=== PATIENT | male | born 1940 | race Caucasian/White ===

== ENCOUNTER 2024-06-27 05:54 | Day surgery (SDC) | payer OTHER, MEDICARE ==
[~2024-06-27] VITALS: Ht 185.4 cm; Wt 93.4 kg
[2024-06-27 06:59] VITALS: O2SAT 98
[2024-06-27] MEDS ORDERED: CEFAZOLIN 2 GM IVPB PREMIX 50 ML IV ONE (07:00)
[2024-06-27] MEDS ORDERED: BUPIVACAINE /PF 0.25% 10 ML VIAL INJ ONE (07:35)
[2024-06-27] MEDS ORDERED: LR 1,000 ML IV.SOLN IV ONE (07:35)
[2024-06-27] MEDS ORDERED: SUCCINYLCHOLINE CHLORIDE 20 MG/ML(QUELICIN) ONE (07:35)
[2024-06-27] MEDS ORDERED: METOCLOPRAMIDE HCL 10 MG/2 ML VIAL ONE (07:35)
[2024-06-27] MEDS ORDERED: ROCURONIUM BROMIDE 10 MG/ML (ZEMURON) ONE (07:35)
[2024-06-27] MEDS ORDERED: fentaNYL CITRATE/PF 100 MCG/2 ML AMP ONE (07:35)
[2024-06-27] MEDS ORDERED: SEVOFLURANE 15 MIN GAS INH ONE (07:35)
[2024-06-27] MEDS ORDERED: ONDANSETRON HCL 4 MG/2 ML VIAL ONE (07:35)
[2024-06-27] MEDS ORDERED: NEOSTIGMINE METHYLSULFATE 1 MG/ML, 10 ML VIAL ONE (07:35)
[2024-06-27] MEDS ORDERED: PROPOFOL 200MG/ 20ML VIAL (DIPRIVAN) IV ONE (07:35)
[2024-06-27] MEDS ORDERED: GLYCOPYRROLATE 0.2 MG/ML VIAL ONE (07:35)
[2024-06-27] MEDS ORDERED: NS IRRIG SOLN 1000 ML IR ONE (07:35)
[2024-06-27] MEDS ORDERED: ACETAMINOPHEN I.V. 1000 MG 100 ML IV ONE (07:37)
[2024-06-27] MEDS ORDERED: LR 1,000 ML IV SCH (08:30)
[2024-06-27] MEDS ORDERED: ONDANSETRON HCL 4 MG/2 ML VIAL IVP PRN (08:30)
[2024-06-27] MEDS ORDERED: HYDROmorphone 2 MG/ML VIAL IVP PRN (08:30)
[2024-06-27] MEDS ORDERED: HYDROmorphone 1 MG/ML INJ. CARTRIDGE IVP PRN (08:30)
[2024-06-27] MEDS ORDERED: D5/0.45 NS 1,000 ML IV SCH (09:15)
[2024-06-27] MEDS ORDERED: HYDROcodone/ACETAMIN 5-325 MG TAB (NORCO/ VICODIN) PO PRN ×2 (14:30)
[2024-06-27 18:06] VITALS: BP_SYST 144; PULSE 65; RESP 19
== END 2024-06-27 15:59 | disposition home or self-care (01) ==
LOC: SDS 05:54
PROVIDERS: ATTEND Colon & Rectal Surgery
DX: K40.30 Unilateral inguinal hernia, with obstruction, without gangrene, not specified as recurrent (principal); D17.6 Benign lipomatous neoplasm of spermatic cord; I10 Essential (primary) hypertension; K21.9 Gastro-esophageal reflux disease without esophagitis; E78.2 Mixed hyperlipidemia; M79.10 Myalgia, unspecified site; M19.90 Unspecified osteoarthritis, unspecified site; M10.9 Gout, unspecified; Z95.0 Presence of cardiac pacemaker; Z97.4 Presence of external hearing-aid; Z86.79 Personal history of other diseases of the circulatory system; Z86.39 Personal history of other endocrine, nutritional and metabolic disease; Z98.52 Vasectomy status; Z90.49 Acquired absence of other specified parts of digestive tract; Z98.890 Other specified postprocedural states; Z82.49 Family history of ischemic heart disease and other diseases of the circulatory system; Z80.0 Family history of malignant neoplasm of digestive organs; Z82.0 Family history of epilepsy and other diseases of the nervous system; Z79.899 Other long term (current) drug therapy
CPT/HCPCS: 87081; 49507; C1781; J3490 ×2; J0690; J2765; J2405; J2704; J0330; J3010; J7120; J0131; J2710